=== PATIENT | male | born 1980 | race Caucasian/White ===

== ENCOUNTER 2018-01-20 08:46 | Day surgery (SDC) | payer BC ==
[2018-01-20] MEDS ORDERED: FENTANYL PF 100MCG/2ML VIAL IV ONE (08:47)
[2018-01-20] MEDS ORDERED: PROPOFOL 10 MG/ML VIAL IV ONE (08:47)
[2018-01-20] MEDS ORDERED: LIDOCAINE 2% MDV (20MG/ML) 20ML VIAL IV ONE (08:47)
--- NOTE | 2018-01-24 12:30 | Operative Note ---
DATE OF SURGERY: 01/20/2018 SURGEON: Lars Richards MD OPERATION: ESOPHAGOGASTRODUODENOSCOPY. INDICATIONS: This is a 37-year-old male with history of gastroesophageal reflux disease with persistent symptoms who presented for esophagogastroduodenoscopy. POSTOPERATIVE DIAGNOSES: 1. Mild distal esophagitis. 2. Mild gastritis. 3. Normal duodenum. ANESTHESIA: Sedation is per Anesthesia. Pulse oximetry was monitored throughout the procedure to maintain O2 saturation of 90% or greater. Supplemental oxygen was administered via nasal cannula. Cardiac and vital signs were monitored throughout the duration of the procedure, and they were stable. The procedure of esophagogastroduodenoscopy and risks and benefits of the procedure, including the risk of bleeding and perforation, among others, were explained to the patient who voiced understanding and agreed to have the procedure done. Physical examination was performed, and the patient was found stable for sedation. PROCEDURE: The patient was placed in the left lateral position. Sedation was initiated. A plastic bite block was inserted into the oral cavity. The Olympus [id number] gastroscope was introduced into the oral cavity and advanced to the proximal esophagus without difficulty. The esophageal mucosa was carefully examined upon introduction of the gastroscope. The proximal and mid esophageal mucosa appeared normal. In the distal esophagus there was mild Z line irregularity but no ulcers, inflammation, or mass lesions were noted. The gastroscope was then advanced into the stomach, and surveillance of the stomach revealed mild erythema along the gastric body and antrum but no ulcers were noted. The gastroscope was then advanced to the descending duodenum without difficulty. The duodenal bulb and descending duodenum appeared normal. The gastroscope was then withdrawn into the stomach and retroflexion was performed. There were no other lesions noted. The gastroscope was then withdrawn while carefully examining the gastric and esophageal mucosa. No other lesions noted. Multiple duodenal, gastric, and distal esophageal biopsies were obtained. The patient remained with stable vital signs and was transferred to the recovery room. RECOMMENDATIONS: 1. The patient is to be on ranitidine 150 mg p.o. b.i.d. 2. I would be happy to see him back in the office as needed. Thank you for allowing me to participate in the care of your patient. CC: Dr. Bethanie CHACON
== END 2018-01-20 10:15 | disposition home or self-care (01) ==
LOC: HOP 08:46
PROVIDERS: ATTEND Internal Medicine Gastroenterology
DX: K21.9 Gastro-esophageal reflux disease without esophagitis (principal); K22.70 Barrett's esophagus without dysplasia; K20.9 Esophagitis, unspecified; K29.60 Other gastritis without bleeding
CPT/HCPCS: 43235; 00731; J3010